=== PATIENT | female | born 1990 | race Caucasian/White ===

== ENCOUNTER 2024-04-05 14:50 | Emergency (ER) | payer MEDICAID ==
[~2024-04-05] VITALS: Ht 162.6 cm; Wt 87.1 kg
[2024-04-05 14:55] VITALS: BP 157/99; PULSE 102; RESP 20; TEMP 98.9; O2SAT 96
[2024-04-05 15:10] VITALS: O2SAT 96
[2024-04-05 16:32] LABS: BASOPHILS % (AUTO) 0.4 % (0.0-2.0); EOSINOPHILS % (AUTO) 0.1 % (0.0-4.0); HEMATOCRIT 39.4 % (36-48); HEMOGLOBIN 13.5 g/dL (12.0-16.0); LYMPHOCYTES # (AUTO) 0.9 K/uL (2.5-16.5); LYMPHOCYTES % (AUTO) 26.3 % (20.5-51.1); MEAN CORPUSCULAR HEMOGLOBIN 29 pg (27-31); MEAN CORPUSCULAR HGB CONC 34 g/dL (33-37); MEAN CORPUSCULAR VOLUME 84.5 fL (80-94); MONOCYTES # (AUTO) 0.6 K/uL (0.8-1.0); NEUTROPHILS % (AUTO) 56.2 % (42.2-75.2); PLATELET COUNT (AUTO) 194 K/uL (140-450); RED BLOOD CELL COUNT(AUTO) 4.66 MIL/uL (4.20-5.40); RED CELL DISTRIBUTION WIDTH 12.4 % (11.6-13.7); WHITE BLOOD COUNT (AUTO) 3.5 K/uL (4.8-10.8)
[2024-04-05] MEDS: NACL 0.9% 1,500 ML IV ONE (16:33)
[2024-04-05 16:49] LABS: APPEARANCE,URINE CLEAR (CLEAR); BILIRUBIN,URINE NEGATIVE (NEGATIVE); BLOOD, URINE NEGATIVE (NEGATIVE); COLOR,URINE YELLOW (YELLOW); PH,URINE 6.5 (5.0-9.0); PROTEIN,URINE NEGATIVE (NEGATIVE); UGLUCOSE NEGATIVE (NEGATIVE); UROBILINOGEN,URINE 0.2 EU/dL (0.2 - 1)
[2024-04-05 16:50] LABS: LEUKOCYTE ESTERASE ,URINE NEGATIVE (NEGATIVE); NITRITE, URINE NEGATIVE (NEGATIVE)
[2024-04-05 16:51] LABS: ANION GAP 13.3 (8-16); CALCIUM 9.1 mg/dL (8.5-10.1); CREATININE 0.8 mg/dL (0.6-1.3); POTASSIUM 3.3 mmol/L (3.5-5.1)
[2024-04-05 16:55] LABS: ALBUMIN 3.6 g/dL (3.4-5.0); BILIRUBIN,DIRECT 0.1 mg/dL (0.0-0.3); MAGNESIUM 1.9 mg/dL (1.8-2.4); TOTAL BILIRUBIN 0.4 mg/dL (0.0-1.0)
[2024-04-05] MEDS: LOPERAMIDE 2 MG CAP PO ONE (17:07)
[2024-04-05 17:12] VITALS: O2SAT 95
[2024-04-05] MEDS: ONDANSETRON 4 MG/2 ML VIAL IVP STA (17:21)
[2024-04-05] MEDS ORDERED: PROM118S5 PO (18:04)
[2024-04-05] MEDS ORDERED: ALBU0.0912 IH (18:04)
[2024-04-05] MEDS ORDERED: ONDA-188 PO (18:04)
[2024-04-05] MEDS ORDERED: IMO2 PO (18:04)
[2024-04-05] MEDS ORDERED: AZIT250T4 PO (18:04)
[2024-04-05 18:29] VITALS: BP 140/82; PULSE 88; RESP 16; TEMP 98; O2SAT 99
[2024-04-05 19:20] LABS: FLU A ANTIGEN negative (NEGATIVE); FLU B ANTIGEN NEGATIVE (NEGATIVE)
== END 2024-04-05 18:29 | disposition home or self-care (01) ==
LOC: MED 14:50
DX: R11.2 Nausea with vomiting, unspecified (principal); R19.7 Diarrhea, unspecified; J40 Bronchitis, not specified as acute or chronic; E86.0 Dehydration; E87.6 Hypokalemia; R03.0 Elevated blood-pressure reading, without diagnosis of hypertension; Z20.822 Contact with and (suspected) exposure to COVID-19; Z79.1 Long term (current) use of non-steroidal anti-inflammatories (NSAID); Z79.2 Long term (current) use of antibiotics; Z79.899 Other long term (current) drug therapy
CPT/HCPCS: 36415; 71045; 80048; 80076; 81003; 81025; 83690; 83735; 85025; 87426; 87804; 96361; 96374; 99285; J2405; J7030